=== PATIENT | female | born 1935 | race Caucasian/White ===

== ENCOUNTER 2022-02-23 10:00 | Outpatient (CLI) | payer MEDICARE, OTHER | END 2022-02-23 10:01 | disposition home or self-care (01) | LOC: BICMAMMO 10:00 | PROVIDERS: ATTEND Internal Medicine Rheumatology | DX: M81.0 Age-related osteoporosis without current pathological fracture (principal) | CPT/HCPCS: 77080 ==

== ENCOUNTER 2022-09-15 20:15 | Inpatient (IN) | payer OTHER, MEDICARE ==
[2022-09-15] MEDS ORDERED: Fentanyl 100 MCG/2 ML VIAL ONE ×2 (20:37→21:22)
[2022-09-15] MEDS ORDERED: Morphine 2 MG/ML VIAL SLOW IVP PRN (21:40)
[2022-09-15] MEDS ORDERED: Ondansetron ODT 4 MG TAB PO PRN (21:40)
[2022-09-15] MEDS ORDERED: Ipratropium/Albuterol 3 ML NEB NEB PRN (21:40)
[2022-09-15] MEDS ORDERED: hydrALAZINE 20 MG/ML VIAL SLOW IVP PRN (21:40)
[2022-09-15] MEDS ORDERED: Cyclobenzaprine 10 MG TAB PO PRN (21:40)
[2022-09-15] MEDS ORDERED: Sodium Chloride 0.9% 1,000 ML IV SCH (21:45)
[2022-09-15 22:14] LABS: #Eosinphils 0.1 thou/uL (0.0-0.7); #Lymphocytes 1.8 thou/uL (1.20-3.40); #Monocytes 0.3 thou/uL (0.11-0.59); #Neutrophils 6.4 thou/uL (1.40-6.50); %Basophils 0.4 % (0.0-1.0); %Eosinophils 0.9 % (0.0-10.0); %Lymphocytes 20.8 % (21.0-51.0); %Monocytes 3.7 % (0.0-10.0); %Neutrophils 74.2 % (42.0-75.0); Hemoglobin 12.4 g/dL (12.0-16.0); Mean Corpuscular Hemoglobin 35.6 pg (27.0-31.0); Mean Platelet Volume 8.2 fL (7.4-10.4); Platelet Count 171 10x3/uL (130-400); RBC Distribution Width 12.9 % (11.5-14.5); Red Blood Cell (RBC) Count 3.49 mill/uL (4.20-5.40); White Blood Cell (WBC) Count 8.7 10x3/uL (4.8-10.8)
[2022-09-15 22:23] LABS: INR-International Normal Ratio 1.1; PTT 28.2 sec (22.9-36.1); Prothrombin Time 14.5 sec (12.0-14.7)
[2022-09-15 22:31] LABS: Anion Gap 14 mmol/L (10-20); BUN (Urea Nitrogen) 14 mg/dL (9.8-20.1); Calc. Creatinine Clearance 0 mL/min (70-130); Calcium 9.4 mg/dL (7.8-10.44); Carbon Dioxide 24 mmol/L (23-31); Chloride 106 mmol/L (98-107); Estimated GFR 85; Glucose 123 mg/dL (83-110); Magnesium 1.9 mg/dL (1.6-2.6); Potassium 3.4 mmol/L (3.5-5.1); Sodium 141 mmol/L (136-145)
[2022-09-15] MEDS: Acetaminophen/Codeine 30-300mg Tablet PO PRN (23:40)
[2022-09-15] MEDS: Acetaminophen 325 MG TAB PO SCH (23:42)
[2022-09-16 02:35] VITALS: BMI 22.4
[2022-09-16] MEDS: Acetaminophen/Codeine 30-300mg Tablet PO PRN ×2 (05:43→22:11)
[2022-09-16] MEDS: Acetaminophen 325 MG TAB PO SCH ×3 (05:44→17:31)
[2022-09-16 06:03] LABS: SARS-CoV-2 NAA Rapid Test Not Detected (NotDetected)
[2022-09-16] MEDS ORDERED: Fentanyl 100 MCG/2 ML VIAL SLOW IVP PRN (08:19)
[2022-09-16] MEDS ORDERED: CEFAZOLIN 2 GM in Sodium Chloride 0.9% 100 ML IVPB SCH (08:30)
[2022-09-16] MEDS: Fentanyl 100 MCG/2 ML VIAL SLOW IVP PRN (08:41)
[2022-09-16] MEDS ORDERED: fentaNYL PF 100 MCG/2 ML SYRINGE ONE ×2 (09:01→11:58)
[2022-09-16] MEDS ORDERED: CEFAZOLIN 2 GM VIAL ONE (09:32)
[2022-09-16] MEDS ORDERED: Sodium Chloride 0.9% 100 ML ONE (09:32)
[2022-09-16] MEDS: Sodium Chloride 0.9% 1,000 ML IV SCH ×2 (09:34→23:08)
[2022-09-16] MEDS: Gabapentin 100 MG CAP PO SCH ×3 (09:35→20:02)
[2022-09-16] MEDS: Multivitamin W/ Minerals 1 TAB PO SCH (09:35)
[2022-09-16] MEDS: Polyethylene Glycol 3350 17 GM Packet PO SCH (09:35)
[2022-09-16] MEDS: Famotidine/PF 20 mg/2ml Vial SLOW IVP SCH ×2 (09:35→20:03)
[2022-09-16] MEDS ORDERED: Ondansetron PF 4 MG/2 ML Vial ONE (10:03)
[2022-09-16] MEDS ORDERED: ePHEDrine 50 MG/ML VIAL ONE (10:03)
[2022-09-16] MEDS ORDERED: PROPOFOL 200 MG/20 ML VIAL ONE (10:03)
[2022-09-16] MEDS ORDERED: Ketorolac Tromethamine 30 MG/ML VIAL ONE (10:03)
[2022-09-16] MEDS ORDERED: Lidocaine 1% PF 5 ML VIAL ONE (10:03)
[2022-09-16] MEDS ORDERED: Promethazine HCl 25 MG/ML VIAL IM PRN (11:45)
[2022-09-16] MEDS ORDERED: Ondansetron HCl/PF 4 MG/2 ML Vial IVP PRN (11:45)
[2022-09-16] MEDS: CEFAZOLIN 2 GM in Sodium Chloride 0.9% 100 ML IVPB SCH (17:31)
[2022-09-17] MEDS: Acetaminophen 325 MG TAB PO SCH ×5 (00:55→20:39)
[2022-09-17] MEDS: CEFAZOLIN 2 GM in Sodium Chloride 0.9% 100 ML IVPB SCH (02:27)
[2022-09-17] MEDS: Fentanyl 100 MCG/2 ML VIAL SLOW IVP PRN (02:28)
[2022-09-17] MEDS: Acetaminophen/Codeine 30-300mg Tablet PO PRN (05:44)
[2022-09-17] MEDS: Sodium Chloride 0.9% 1,000 ML IV SCH (06:35)
[2022-09-17] MEDS ORDERED: Levothyroxine Sodium 75 MCG TAB PO SCH (08:30)
[2022-09-17] MEDS: Multivitamin W/ Minerals 1 TAB PO SCH (08:36)
[2022-09-17] MEDS: Acetaminophen/Codeine 30-300mg Tablet PO SCH ×3 (08:36→20:38)
[2022-09-17] MEDS: Gabapentin 100 MG CAP PO SCH (08:40)
[2022-09-17] MEDS: Polyethylene Glycol 3350 17 GM Packet PO SCH (08:40)
[2022-09-18] MEDS: Acetaminophen/Codeine 30-300mg Tablet PO SCH ×4 (02:29→20:26)
[2022-09-18] MEDS: Acetaminophen 325 MG TAB PO SCH ×4 (05:59→22:31)
[2022-09-18] MEDS: Levothyroxine Sodium 75 MCG TAB PO SCH (05:59)
[2022-09-18 06:31] LABS: #Eosinphils 0.1 thou/uL (0.0-0.7); #Lymphocytes 1.3 thou/uL (1.20-3.40); #Monocytes 0.7 thou/uL (0.11-0.59); #Neutrophils 7.2 thou/uL (1.40-6.50); %Basophils 0.3 % (0.0-1.0); %Eosinophils 1.3 % (0.0-10.0); %Lymphocytes 14.1 % (21.0-51.0); %Monocytes 7.6 % (0.0-10.0); %Neutrophils 76.6 % (42.0-75.0); Mean Corpuscular HGB CONC 34.4 g/dL (32.0-36.0); Mean Corpuscular Hemoglobin 36.5 pg (27.0-31.0); Mean Platelet Volume 8.8 fL (7.4-10.4); Platelet Count 110 10x3/uL (130-400); RBC Distribution Width 13.1 % (11.5-14.5); Red Blood Cell (RBC) Count 3.02 mill/uL (4.20-5.40); White Blood Cell (WBC) Count 9.3 10x3/uL (4.8-10.8)
[2022-09-18 06:50] LABS: Anion Gap 12 mmol/L (10-20); BUN (Urea Nitrogen) 7 mg/dL (9.8-20.1); Calc. Creatinine Clearance 61 mL/min (70-130); Calcium 8.6 mg/dL (7.8-10.44); Carbon Dioxide 23 mmol/L (23-31); Chloride 109 mmol/L (98-107); Estimated GFR 87; Glucose 85 mg/dL (83-110); Magnesium 1.8 mg/dL (1.6-2.6); Phosphorus 3.2 mg/dL (2.3-4.7); Sodium 141 mmol/L (136-145)
[2022-09-18] MEDS ORDERED: Magnesium 2 GM/50 ML(in water) 2 GM in Premix Bag 1 BAG IVPB SCH (08:15)
[2022-09-18] MEDS ORDERED: Potassium Chloride 20 MEQ TAB PO SCH (08:30)
[2022-09-18] MEDS: Polyethylene Glycol 3350 17 GM Packet PO SCH (08:31)
[2022-09-18] MEDS: Multivitamin W/ Minerals 1 TAB PO SCH (08:31)
[2022-09-18] MEDS ORDERED: Potassium Phosphate 30 MMOL, Magnesium Sulfate 2 GM in Sodium Chloride 0.9% 250 ML 250 ML IVPB SCH (09:00)
[2022-09-18] MEDS ORDERED: Methotrexate Sodium 2.5 MG TAB PO SCH (09:00)
[2022-09-19] MEDS: Acetaminophen/Codeine 30-300mg Tablet PO SCH ×5 (01:45→23:25)
[2022-09-19] MEDS: Acetaminophen 325 MG TAB PO SCH ×4 (04:09→23:54)
[2022-09-19] MEDS: Levothyroxine Sodium 75 MCG TAB PO SCH (04:10)
[2022-09-19 07:06] LABS: Anion Gap 12 mmol/L (10-20); BUN (Urea Nitrogen) 9 mg/dL (9.8-20.1); Calc. Creatinine Clearance 60 mL/min (70-130); Calcium 7.9 mg/dL (7.8-10.44); Carbon Dioxide 22 mmol/L (23-31); Chloride 108 mmol/L (98-107); Estimated GFR 86; Glucose 78 mg/dL (83-110); Magnesium 1.9 mg/dL (1.6-2.6); Phosphorus 2.7 mg/dL (2.3-4.7); Potassium 4.5 mmol/L (3.5-5.1); Sodium 137 mmol/L (136-145)
[2022-09-19] MEDS: Multivitamin W/ Minerals 1 TAB PO SCH (09:21)
[2022-09-19] MEDS: Polyethylene Glycol 3350 17 GM Packet PO SCH (09:21)
[2022-09-20 05:23] VITALS: TEMP 98.1
[2022-09-20] MEDS: Acetaminophen 325 MG TAB PO SCH ×2 (06:30→11:50)
[2022-09-20] MEDS: Levothyroxine Sodium 75 MCG TAB PO SCH (06:30)
[2022-09-20 07:18] LABS: #Eosinphils 0.1 thou/uL (0.0-0.7); #Lymphocytes 1.7 thou/uL (1.20-3.40); #Monocytes 0.7 thou/uL (0.11-0.59); #Neutrophils 6.8 thou/uL (1.40-6.50); %Basophils 0.3 % (0.0-1.0); %Eosinophils 1.3 % (0.0-10.0); %Lymphocytes 17.9 % (21.0-51.0); %Neutrophils 73.6 % (42.0-75.0); Hemoglobin 11.5 g/dL (12.0-16.0); Mean Corpuscular HGB CONC 33.1 g/dL (32.0-36.0); Mean Corpuscular Hemoglobin 35.4 pg (27.0-31.0); Mean Platelet Volume 8.4 fL (7.4-10.4); Platelet Count 198 10x3/uL (130-400); RBC Distribution Width 13.1 % (11.5-14.5); Red Blood Cell (RBC) Count 3.25 mill/uL (4.20-5.40); White Blood Cell (WBC) Count 9.3 10x3/uL (4.8-10.8)
[2022-09-20] MEDS: Polyethylene Glycol 3350 17 GM Packet PO SCH (08:20)
[2022-09-20] MEDS: Multivitamin W/ Minerals 1 TAB PO SCH (08:20)
[2022-09-20] MEDS: Acetaminophen/Codeine 30-300mg Tablet PO SCH ×2 (08:47→13:26)
[2022-09-20 12:28] VITALS: BP 149/88
== END 2022-09-20 15:40 | DRG 493 ==
LOC: ERS 20:15 → SURG A 21:41
PROVIDERS: ADMIT Surgery; ATTEND Surgery
PROC: 0QSG04Z Reposition Right Tibia with Internal Fixation Device, Open Approach (ICD-10-PCS; principal; 2022-09-16)
PROC: 0QSJ04Z Reposition Right Fibula with Internal Fixation Device, Open Approach (ICD-10-PCS; 2022-09-16)
DX: S82.391A Other fracture of lower end of right tibia, initial encounter for closed fracture (principal); M33.20 Polymyositis, organ involvement unspecified; Z96.651 Presence of right artificial knee joint; E03.9 Hypothyroidism, unspecified; Z20.822 Contact with and (suspected) exposure to COVID-19; S82.831A Other fracture of upper and lower end of right fibula, initial encounter for closed fracture; W19.XXXA Unspecified fall, initial encounter; E83.41 Hypermagnesemia; E87.5 Hyperkalemia; Z90.49 Acquired absence of other specified parts of digestive tract; Z98.890 Other specified postprocedural states; Z88.2 Allergy status to sulfonamides; Y92.511 Restaurant or cafe as the place of occurrence of the external cause
CPT/HCPCS: 36415; 80048; 83735; 84100; 85025; 85610; 85730; 86850; 86900; 86901; 96374; 96376; C1713; C1769; C1889; J1650; J1885; J2405; J2704; J3010; J3475; J3490; J7050; J8610; Q0162; S0028; U0002